=== PATIENT | female | born 1990 | race Caucasian/White ===

== ENCOUNTER 2018-04-23 21:50 | Emergency (ER) | payer BC, OTHER ==
[2018-04-23] MEDS ORDERED: IBUPROFEN 600 MG TABLET PO ONE (21:58)
--- NOTE | 2018-04-23 22:03 | Emergency Department Record ---
History of Present Illness - General Chief Complaint: Knee injury Stated Complaint: L KNEE INJURY Time Seen by Provider: 04/23/18 21:55 Source: Patient Mode of Arrival: Ambulatory Limitations: No limitations - History of Present Illness Initial Comments: 28 female presents with a right knee injury. She states she tripped on her kids toy landing on the hardwood floor. She denies any other injuries. No numbness or tingling. No weakness distally MD Complaint: Knee injury -: Minutes(s) Injury: Knee: Left Type of Injury: Blunt Place: Home Severity: Moderate Improves With: Nothing Worsens With: Palpation Context: Other (denies non accidental trauma) Other Symptoms: Other Associated Symptoms: Able to partially bear weight - Related Data Previous Rx's Medication Instructions Recorded Naproxen [Naprosyn] 500 mg PO Q12H #30 tab. 04/23/18 Allergies Allergy/AdvReac Type Severity Reaction Status Date / Time No Known Drug Allergies Allergy Verified 01/14/15 17:09 Review of Systems Constitutional: Denies: Chills, Fever, Weakness Eyes: Denies: Eye discharge ENT: Denies: Congestion, Throat pain Respiratory: Denies: Cough Cardiovascular: Denies: Chest pain, Syncope Endocrine: Denies: Fatigue Gastrointestinal: Denies: Abdominal pain, Diarrhea, Nausea, Vomiting Genitourinary: Denies: Dysuria Musculoskeletal: Reports: As per HPI, Arthralgia Skin: Reports: Bruising Neurological: Denies: Headache, Numbness, Weakness Psychiatric: Denies: Anxiety Hematological/Lymphatic: Denies: Easy bleeding, Easy bruising Past Medical History - SOCIAL HISTORY Smoking Status: Light tobacco smoker (<10/day) - RESPIRATORY Hx Respiratory Disorders: No - CARDIOVASCULAR Hx Cardio Disorders: No - NEURO Hx Neuro Disorders: No - GI Hx GI Disorders: No - Hx Genitourinary Disorders: No - ENDOCRINE Hx Endocrine Disorders: No - MUSCULOSKELETAL Hx Musculoskeletal Disorders: No - PSYCH Hx Psych Problems: Yes Hx Depression: Yes - HEMATOLOGY/ONCOLOGY Hx Hematology/Oncology Disorders: No Physical Exam - General General Appearance: Alert, Oriented x3, Cooperative, No acute distress Limitations: No limitations - Head Head exam: Atraumatic, Normocephalic, Normal inspection - Eye Eye exam: Normal appearance. negative: Conjunctival injection - ENT ENT exam: Normal exam Ear exam: Normal external inspection Nasal Exam: Normal inspection Mouth exam: Normal external inspection - Neck Neck exam: Normal inspection - Cardiovascular Cardiovascular Exam: Regular rate, Normal rhythm, Normal heart sounds - GI/Abdominal GI/Abdominal exam: Soft. negative: Tenderness - Rectal Rectal exam: Deferred - exam: Deferred - Extremities Extremities exam: Full ROM, Joint swelling, Normal capillary refill, Tenderness. negative: Normal inspection Image of Full Body: 1 - lateral knee swelling with bruising, patella is intact, full ROM - Neurological Neurological exam: Alert, Oriented X3 - Psychiatric Psychiatric exam: Normal affect, Normal mood. negative: Agitated, Anxious - Skin Skin exam: Other (bruising lateral knee) Course Vital Signs 04/23/18 21:56 Temperature 98.9 F Pulse Rate [ 86 Pulse Ox Probe] Respiratory 20 Rate Blood Pressure 140/97 [Left Arm] Pulse Ox 99 - Reevaluation(s) Reevaluation #1: The XR was reviewed. No acute fracture The patient was offered crutches and knee immobilizer. She declined She was advised on home care with ice, rest, immobilization 04/23/18 Disposition Disposition: Discharge Clinical Impression: Contusion of knee, left Disposition: Home, Self-Care Condition: (1) Good Instructions: Contusion in Adults (ED), Knee Immobilizer (ED) Additional Instructions: Take the prescriptions provided today as directed. Call your family doctor. Call to schedule the next available appointment for a recheck. Return to ED if your symptoms worsen or if you have any new concerns. Review the final Emergency Record and test results with your doctor on follow up Use the crutches until pain free If the pain continues then see your doctor for close follow up to recheck your injuries Prescriptions: Naproxen [Naprosyn] 500 mg PO Q12H #30 tab.dr Forms: Patient Portal Access Time of Disposition: 22:28 Quality - Quality Measures Quality Measures: N/A - Blood Pressure Screening Does Patient Have Any of the Following: No Blood Pressure Classification: Hypertensive Reading Systolic Measurement: 140 Diastolic Measurement: 97 Screening for High Blood Pressure: < Pre-Hypertensive BP, F/U Documented > [ G8950] Pre-Hypertensive Follow-up Interventions: Referral to alternative/primary care provider.
[2018-04-23] MEDS ORDERED: HYDROCODONE/APAP 5/325MG TABLET PO ONE (22:49)
--- NOTE | 2018-04-25 11:05 | RADIOLOGY REPORT ---
EXAM: LEFT KNEE HISTORY: PATIENT HAS LEFT KNEE INJURY. TECHNIQUE: Four views of the left knee are provided without comparison examinations. FINDINGS: There is no radiographic evidence of a fracture or dislocation of the left knee. No significant suprapatellar bursal effusion is noted. There is , however, soft tissue swelling identified over the lateral of the left knee. IMPRESSION: SOFT TISSUE SWELLING IS NOTED OVER THE LATERAL ASPECT OF THE LEFT KNEE WITHOUT RADIOGRAPHIC EVIDENCE OF A FRACTURE OR DISLOCATION OF THE LEFT KNEE. IF FURTHER CLINICAL CONCERN THEN MRI OF THE LEFT KNEE CAN BE OBTAINED FOR FURTHER EVALUATION. JOB NUMBER: [id number] [facility]
== END 2018-04-23 23:08 | disposition home or self-care (01) ==
LOC: ER 21:50
DX: S80.02XA Contusion of left knee, initial encounter (principal); W18.09XA Striking against other object with subsequent fall, initial encounter; Y92.009 Unspecified place in unspecified non-institutional (private) residence as the place of occurrence of the external cause; F17.210 Nicotine dependence, cigarettes, uncomplicated
CPT/HCPCS: 99283

== ENCOUNTER 2019-04-20 21:56 | Emergency (ER) | payer MEDICAID ==
[2019-04-20] MEDS ORDERED: CLINDAMYCIN 150 MG CAP PO ONE ×2 (22:10→22:17)
--- NOTE | 2019-04-20 22:16 | Emergency Department Record ---
History of Present Illness - General Chief complaint: ENT Stated complaint: PAIN IN RT EYE Time Seen by Provider: 04/20/19 21:58 Source: Patient Mode of Arrival: Ambulatory Limitations: No limitations - History of Present Illness Initial comments: The patient is here due to pain and swelling to the R upper eyebrow area above the eye lid. She denies any visual changes. She did try to pop it but it was not successful. There is no eye involvement, visual changes or blurred vision. MD complaint: Other Onset/Timin -: Hour(s) Severity: Severe Severity scale (1-10): 8 Quality: Other Consistency: Constant Improves with: None Worsens with: Other - Related Data Home Medications Medication Instructions Recorded Confirmed Last Taken Buspirone HCl [Buspar] 10 mg PO BID 04/20/19 04/20/19 04/20/19 Dexmethylphenidate HCl [Focalin] 10 mg PO DAILY 04/20/19 04/20/19 04/20/19 Escitalopram Oxalate [Lexapro] 20 mg PO DAILY 04/20/19 04/20/19 04/20/19 Previous Rx's Medication Instructions Recorded Clindamycin HCl [Cleocin HCl] 300 mg PO QID #28 capsule 04/20/19 Allergies Allergy/AdvReac Type Severity Reaction Status Date / Time No Known Drug Allergies Allergy Verified 01/14/15 17:09 Travel Screening - Travel/Exposure Within Last 30 Days Have you traveled within the last 30 days?: No - Travel/Exposure Within Last Year Have you traveled outside the [place] in the last year?: No - Additonal Travel Details Have you been exposed to anyone with a communicable illness?: No - Travel Symptoms Symptom Screening: None Review of Systems Constitutional: Denies: Chills, Fever Eyes: Denies: Eye discharge, Photophobia, Vision change ENT: Denies: Congestion Respiratory: Denies: Cough, Dyspnea Past Medical History - SOCIAL HISTORY Smoking Status: Light tobacco smoker (<10/day) Alcohol Use: None Drug Use: None - RESPIRATORY Hx Respiratory Disorders: No - CARDIOVASCULAR Hx Cardio Disorders: No - NEURO Hx Neuro Disorders: No - GI Hx GI Disorders: No - Hx Genitourinary Disorders: No - ENDOCRINE Hx Endocrine Disorders: No - MUSCULOSKELETAL Hx Musculoskeletal Disorders: No - PSYCH Hx Psych Problems: Yes Hx Anxiety: Yes Hx Depression: Yes - HEMATOLOGY/ONCOLOGY Hx Hematology/Oncology Disorders: No Family Medical History Any Significant Family History?: Yes Hx Heart Disease: Grandparents Hx Stroke: Grandparents Physical Exam - General General Appearance: Alert, Oriented x3, Cooperative, No acute distress - Head Head exam: Atraumatic, Normocephalic, Normal inspection - Eye Eye exam: PERRL, EOMI, Periorbital tenderness (Just at the site of the swelling.). negative: Normal appearance (There is a 1x1 cm area of erythema, and tenderness with a central nodular feel. It appears to be the start of a boil or very small superficial abscess. It is located above the eyelid just below the eyebrow.), Conjunctival injection, Periorbital swelling - Neck Neck exam: Normal inspection, Full ROM. negative: Tenderness - Respiratory Respiratory exam: Normal lung sounds bilaterally. negative: Respiratory distress - Cardiovascular Cardiovascular Exam: Regular rate, Normal rhythm, Normal heart sounds Course Vital Signs 04/20/19 22:00 Temperature 99.1 F Pulse Rate [ 88 Pulse Ox Probe] Respiratory 18 Rate Blood Pressure 139/82 [Left Arm] Pulse Ox 97 - Reevaluation(s) Reevaluation #1: I did discuss the issue with the patient and did explain that it appears she has a small superficial abscess starting. She is to take the Clindamycin and to use warm compresses on the area and return for any worsening symptoms. 04/20/19 22:14 Disposition Disposition: Discharge Clinical Impression: Abscess of skin Qualifiers: Site of cutaneous abscess: unspecified site Qualified Code(s): L02.91 - Cutaneous abscess, unspecified Disposition: Home, Self-Care Condition: (2) Stable Instructions: Furunculosis and Carbunculosis (ED) Additional Instructions: Please continue the Clindamycin and use warm compresses on the area. Please return to the ER for any worsening symptoms. Prescriptions: Clindamycin HCl [Cleocin HCl] 300 mg PO QID #28 capsule Forms: Patient Portal Access Time of Disposition: 22:16 Quality - Quality Measures Quality Measures: N/A - Blood Pressure Screening View Details: Yes Does Patient Have Any of the Following: No Blood Pressure Classification: Pre-Hypertensive BP Reading Systolic Measurement: 139 Diastolic Measurement: 82 Screening for High Blood Pressure: < Pre-Hypertensive BP, F/U Documented > [G8950] Pre-Hypertensive Follow-up Interventions: Referral to alternative/primary care provider.
== END 2019-04-20 22:27 | disposition home or self-care (01) ==
LOC: ER 21:56
DX: H00.031 Abscess of right upper eyelid (principal)
CPT/HCPCS: 99283